=== PATIENT | female | born 1975 | race Caucasian/White ===

== ENCOUNTER 2023-09-21 08:30 | Outpatient (CLI) | payer BC, SELFPAY ==
--- NOTE | 2023-09-21 10:06 | W.ANESCHARGE ---
Anesthesia Charges Start Date/Time Anesthesia Start Date: 09/21/23 Anesthesia Start Time: 09:29 Stop Date/Time Anesthesia Stop Date: 09/21/23 Anesthesia Stop Time: 10:04
== END 2023-09-21 08:31 | disposition home or self-care (01) ==
LOC: OP CLINIC 08:30
PROVIDERS: Visit Provider Internal Medicine
DX: Z12.11 Encounter for screening for malignant neoplasm of colon (principal); K63.5 Polyp of colon; K57.30 Diverticulosis of large intestine without perforation or abscess without bleeding
CPT/HCPCS: 00811; 45380; 80061; 88305; J2704

== ENCOUNTER 2023-09-28 10:54 | Outpatient (CLI) | payer BC, SELFPAY ==
--- NOTE | 2023-09-28 11:30 | MM_ITS ---
Patient: EMBER FORD Facility:?[facility] Patient ID:?[id number] Site Patient ID:?[id number] Site :?[id number] Study:?XRay-Breast Bilateral 3D w/CAD-09/28/2023 11:33:49 AM Ordering Physician:Eva Final Report: BILATERAL SCREENING MAMMOGRAM WITH COMPUTER-AIDED DETECTION AND TOMOSYNTHESIS TECHNIQUE: CC and MLO views were obtained. These mammographic images have been obtained using full-field digital technique. These mammographic images were interpreted with the benefit of computer-aided detection. Breast Tomosynthesis was used in this interpretation. COMPARISON FILM: 01/02/2020, 11/04/2018, 07/03/2017. FINDINGS: The breasts are heterogeneously dense, which may obscure small masses. IMPRESSION: There is no radiographic evidence for malignancy. ASSESSMENT: BI-RADS Category 1: Negative RECOMMENDATION: Routine screening mammogram in 1 year. A lay language report of this examination will be provided to the patient. Justin Alonzo M.D. Diagnostic Radiologist [email or web address] DSM/sp R& Transcribed: 1:50 p.m. SP/Dictated by: Justin Alonzo MD @ 09/28/2023 12:11:00 PM Signed by:?Justin Alonzo MD @09/28/2023 3:26:00 PM (Electronic Signature)
== END 2023-09-28 10:55 | disposition home or self-care (01) ==
LOC: MAMMO 10:54
PROVIDERS: Visit Provider Obstetrics & Gynecology
DX: Z12.31 Encounter for screening mammogram for malignant neoplasm of breast (principal); R92.2 Inconclusive mammogram
CPT/HCPCS: 77063; 77067